=== PATIENT | female | born 1995 | race Caucasian/White ===

== ENCOUNTER 2023-12-14 16:16 | Outpatient (CLI) | payer OTHER | END 2023-12-14 23:59 | disposition critical access hospital (66) | LOC: EMS 16:16 | DX: M54.50 Low back pain, unspecified (principal); R55 Syncope and collapse | CPT/HCPCS: A0425; A0429 ==

== ENCOUNTER 2023-12-14 16:50 | Emergency (ER) | payer OTHER ==
--- NOTE | 2023-12-14 17:45 | ED Physician Documentation ---
History of Present Illness - Stated complaint Stated Complaint: LOWER BACK PX - Chief complaint Chief Complaint: Back Pain - Additonal information Additional information: 28-year-old female presents emergency department for lower back pain. Patient recently had a baby about 9 months ago said that she had a lot of back labor then as well as an epidural. She has had no back surgeries no history of IV drug use no recent fevers or chills or illnesses no recent back injuries. Patient said that she was bending over to crop picker her baby as she stood up she felt a very sharp lower back pain she was able to walk her baby over to the couch and then when she slid to the ground for her back pain she was unable to get up due to the severity of pain she has had no incontinence of bowel or bladder since this happened she laid on the ground for several hours trying to get up but was unable to due to the severity of the pain. PD PAST MEDICAL HISTORY - Past Medical History Past Medical History: No - Past Surgical History Past Surgical History: No - Present Medications Home Medications: Ambulatory Orders Medication Instructions Recorded Confirmed Cyclobenzaprine [Flexeril] 10 mg PO TID PRN 6 Days #20 tablet 12/14/23 oxyCODONE [Roxicodone] 5 mg PO Q4-6H #8 tablet 12/14/23 - Allergies Allergies/Adverse Reactions: Allergies Allergy/AdvReac Type Severity Reaction Status Date / Time gluten Allergy Emesis Verified 12/14/23 17:15 - Social History Does the pt smoke?: No Smoking Status: Never smoker Does the pt drink ETOH?: No Does the pt have substance abuse?: No - Immunizations Immunizations are current?: Yes - POLST Patient has POLST: No PD ED PE NORMAL - Vitals Vital signs reviewed: Yes - General General: Alert and oriented X 3, No acute distress, Well developed/nourished - HEENT HEENT: Atraumatic, PERRL - Neck Neck: No bony TTP, No JVD, C-Spine cleared by NEXUS criteria - Cardiac Cardiac: RRR - Respiratory Respiratory: No respiratory distress, Clear bilaterally - Back Back: No CVA TTP, No spinal TTP, Other (right lower back tenderness with palpation) - Derm Derm: Normal color, Warm and dry, No rash - Free text exam Free text exam: Neck and back are without deformity, external skin changes, or signs of trauma. Curvature of the cervical, thoracic, and lumbar spine are within normal limits. Bony features of the shoulders and hips are of equal height bilaterally. Posture is upright, gait is smooth, steady, and within normal limits. No tenderness noted on palpation of the spinous processes. Spinous processes are midline. Cervical, thoracic, are not tender and are without spasm. lumbar paraspinal muscles are tender more on the right than the left. No discomfort is noted with flexion, extension, and nzms-rw-[id number] rotation of the cervical spine, full range of motion is noted. Full range of motion including flexion, extension, and rltn-iq-hdmu rotation of the thoracic and lumbar spine are noted and without discomfort. Straight leg raise test is negative bilaterally. Sensation to the upper and lower extremities is normal bilaterally. No clonus is noted. 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 Dorsi/plantar flexion is normal bilaterally. Results - Vitals Vitals: Vital Signs - 24 hr 12/14/23 12/14/23 17:08 19:32 Temperature 36.6 C 36.4 C L Heart Rate 75 76 Respiratory 20 18 Rate Blood Pressure 119/74 105/64 O2 Saturation 100 99 Oxygen O2 Source Room air - Rads (name of study) Lumbar x-rays Relevant Findings:: Final report received, EMP independent interpretation of test, Other (No acute radiographic abnormalities, mild disc space height loss from L5-S1.) PD Medical Decision Making - ED course ED course: This patient presents with back pain most consistent with Lumbago. Differential diagnoses includes lumbago versus musculoskeletal spasm / strain versus sciatica. No back pain red flags on history or physical. Presentation not consistent with malignancy (lack of history of malignancy, lack of B symptoms), fracture (no trauma, no bony tenderness to palpation), cauda equina (no bowel or urinary incontinence/retention, no saddle anesthesia, no distal weakness), AAA, viscus perforation, osteomyelitis or epidural abscess (no IVDU, vertebral tenderness), renal colic, pyelonephritis (afebrile, no CVAT, no urinary symptoms). X-rays were complete and it does not show any acute abnormalities or findings at this point in time. It does show mild disc height shrinking from L5-S1. Pain significantly improved after modality of medications including Toradol, Tylenol, muscle relaxer, oxycodone. I am prescribing a short course of short-acting opioid pain medication for this patient. 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 I have discussed that the opioids are for short term therapy only, and will not be refilled from the ED. patient strongly encouraged to establish care with primary care provider soon as possible To pursue outpatient imaging if needed that she will be sore for the next few days to make sure that she keeps moving and she is given ER return precautions. Departure - Departure Disposition: 01 Home, Self Care Clinical Impression: Lumbago Qualifiers: Chronicity: acute Back pain laterality: midline Sciatica presence: unspecified whether sciatica present Qualified Code(s): M54.50 - Low back pain, unspecified Instructions: ED Back Care Tips, ED Sprain Strain Lumbar Prescriptions: Cyclobenzaprine [Flexeril] 10 mg PO TID PRN 6 Days #20 tablet PRN Reason: Spasms oxyCODONE [Roxicodone] 5 mg PO Q4-6H #8 tablet Comments: Thank you for trusting us with your care. As we discussed we have completed some basic x-rays of your lower back which shows some mild disc space height loss at L5-S1. This could be due to a multitude of things but at this point in time there is no further emergent workup indicated at this time. I would strongly encourage you to follow-up with your primary care provider outpatient so that if he needed any further evaluation such as an MRI or physical therapy referral you can get that from your primary care provider. As we discussed you can take 1000 mg of Tylenol every 8 hours and 500 mg of Aleve every 12 hours for pain and discomfort. If this is not helping then you can take the cyclobenzaprine that I prescribed up to 3 times a day as needed for lower back pain and muscle spasms. If all those things have been taken and you are still experiencing severe lower back pain you can take an oxycodone. Make sure going home that you are continuing to move around and do not lay still for a long period of time as this will make you more stiff do whenever you can to keep moving. Please come back to the emergency department for developing any fevers or chills, worsening back pain, incontinence of bowel or bladder, or any other concerning emergent symptoms. I am prescribing a short course of narcotic pain medication for you. These are potentially dangerous and addictive medications that should be used carefully. These medications may constipate you. Take an kcni-mzh-fnuxwij stool softener (docusate) twice daily with plenty of water while taking these medications. If you go 24 hours without a bowel movement, take hknd-ydg-uagahkr miralax, per package instructions. Do not drink or drive while taking these medications. If you received narcotic or sedating medications while in the emergency department, do not drive for 24 hours. Store this medication in a safe, secure place and out of reach of children. It is a violation of federal law to give or sell this medication to another person or to use in a manner other than prescribed. The ED will not refill narcotic prescriptions, including prescriptions lost or stolen. To dispose of unwanted medications: 1. [facility] at [address] in [place] has a medication drop box. They accept prescription medications (in pill form) Tuesday through Tuesday 9:00 a.m. to 5:00 p.m. 2. The [facility] [place] [employer] accepts prescription medications (in pill form only) for disposal year round. Call for more info rmation. 3. Contact the [facility] for the next [facility] sponsored prescription drug collection event. , [phone], or [phone]; Note that many narcotic pain relievers also contain Tylenol/acetaminophen. Please ensure that your total dose of acetaminophen from all sources does not exceed 3 g (3000 mg) per day. EXAM: [id number] XR/LSP ([id number]) PROCEDURE: Lumbar Spine 4V INDICATIONS: lumbar pain TECHNIQUE: 5 views of the lumbar spine were acquired. COMPARISON: None. FINDINGS: Bones: Vertebral body heights are well-maintained. No traumatic subluxation. Oblique views without definite pars defects, although some levels are obscured by bowel gas Mild disc space height loss at L5-S1. Soft tissues: No suspicious calcifications. Moderate fecal loading. Metallic densities seen on frontal view may be external. IMPRESSION: No acute radiographic abnormality. Mild disc space height loss at L5-S1. If there is high concern for further derangement, consider MRI evaluation. Discharge Date/Time: 12/14/23 20:08
[2023-12-14] MEDS: KETOROLAC 30 MG/ML VIAL IM STA (18:03)
[2023-12-14] MEDS: ACETAMINOPHEN 325 MG TABLET PO STA (18:04)
[2023-12-14] MEDS: oxyCODONE 5 MG TABLET PO STA (18:04)
[2023-12-14] MEDS: CYCLOBENZAPRINE 10 MG TABLET PO STA (18:43)
--- NOTE | 2023-12-14 18:52 | XRAY Report ---
PROCEDURE: Lumbar Spine 4V INDICATIONS: lumbar pain TECHNIQUE: 5 views of the lumbar spine were acquired. COMPARISON: None. FINDINGS: Bones: Vertebral body heights are well-maintained. No traumatic subluxation. Oblique views without de finite pars defects, although some levels are obscured by bowel gas Mild disc space height loss at L5-S1. Soft tissues: No suspicious calcifications. Moderate fecal loading. Metallic densities seen on frontal view may be external. IMPRESSION: No acute radiographic abnormality. Mild disc space height loss at L5-S1. If there is high concern for further derangement, consider MRI evaluation. Reviewed by: Stefan Wilson MD on 12/14/2023 6:51 PM PDT Approved by: Stefan Wilson MD on 12/14/2023 6:51 PM PDT Station ID: [id number]
[2023-12-14 19:40] VITALS: BP 105/64; O2SAT 99
[2023-12-14] MEDS: oxyCODONE/ACET 5/325 Prepack 4 PO STA (20:01)
== END 2023-12-14 20:08 | disposition home or self-care (01) ==
LOC: ED 16:50
DX: M54.50 Low back pain, unspecified (principal)
CPT/HCPCS: 72110; 99284; A9270